=== PATIENT | female | born 1985 | race African-American/Black ===

== ENCOUNTER 2023-06-15 12:16 | Emergency (ER) | payer MEDICAID, OTHER ==
[~2023-06-15] VITALS: Ht 167.6 cm; Wt 73.6 kg
[~2023-06-15 12:16] MED LIST: IBUP-1493 PO
[2023-06-15 13:33] LABS: BASOPHILS % (AUTO) 0.7 % (0.0-2.0); EOSINOPHILS % (AUTO) 0.8 % (1.0-6.0); HEMATOCRIT 38.1 % (36-46); LYMPHOCYTES # (AUTO) 1.9 K/uL (1.0-4.8); LYMPHOCYTES % (AUTO) 33.9 % (22.0-44.0); MEAN CORPUSCULAR HEMOGLOBIN 29.1 pg (26.0-34.0); MEAN CORPUSCULAR HGB CONC 31.6 G/dL (31.0-37.0); MEAN CORPUSCULAR VOLUME 92 fL (80-100); MONOCYTES # (AUTO) 0.5 K/uL (0.1-1.0); MONOCYTES % (AUTO) 9.4 % (2.0-9.0); NEUTROPHILS % (AUTO) 55.2 % (40.0-70.0); PLATELET COUNT (AUTO) 256 K/uL (150-450); RED BLOOD CELL COUNT(AUTO) 4.14 MIL/uL (4.00-5.20); RED CELL DISTRIBUTION WIDTH 13.8 % (11.5-14.5); WHITE BLOOD COUNT (AUTO) 5.5 K/uL (4.5-11.0)
[2023-06-15 13:34] VITALS: TEMP 98.3
[2023-06-15 13:46] LABS: CALCIUM, TOTAL 9.5 mg/dL (8.8-10.5); CARBON DIOXIDE 26 mmol/L (22-29); CHLORIDE 98 mmol/L (98-107); CREATININE 0.86 mg/dL (0.60-1.30); GLOMERULAR FILTR. RATE CALC > 60 mL/min (>60); GLUCOSE,RANDOM 81 mg/dL (70-110); POTASSIUM 4.7 mmol/L (3.5-5.1); UREA NITROGEN, BLOOD 7 mg/dL (7-18)
[2023-06-15 13:58] LABS: ALANINE AMINOTRANSFERASE 8 U/L (12-78); ALBUMIN 3.3 g/dL (3.4-5.0); ALKALINE PHOSPHATASE 65 U/L (46-116); ANION GAP 7 mmol/L (8-16); ASPARTATE AMINOTRANSFERASE 14 U/L (15-37); BILIRUBIN,TOTAL 0.8 mg/dL (0.1-1.0); HCG,QUANTITATIVE 632 mIU/mL (0-6); SODIUM SERUM 131 mmol/L (136-145)
[2023-06-15 15:47] VITALS: BP 134/76; PULSE 91; RESP 16
== END 2023-06-15 16:07 | disposition home or self-care (01) ==
LOC: EMS 12:16
DX: O20.0 Threatened abortion (principal); O34.11 Maternal care for benign tumor of corpus uteri, first trimester; Z3A.01 Less than 8 weeks gestation of pregnancy
CPT/HCPCS: 76801; 76817; 80053; 84702; 85025; 86901; 99284